=== PATIENT | female | born 1970 | race Caucasian/White ===

== ENCOUNTER 2020-07-15 20:22 | Inpatient (IN) | payer MEDICAID, SELFPAY ==
[~2020-07-15] VITALS: Ht 162.6 cm; Wt 76.7 kg
[~2020-07-15 20:22] MED LIST: PREN-234
--- NOTE | 2020-07-15 20:28 | NUR ---
PT BIBA ALS TAKEN TO BED 5
[2020-07-15 20:29] VITALS: BP 141/81
--- NOTE | 2020-07-15 20:30 | NUR ---
PATIENT PRESENTS TO ED WITH C/O SOB X TODAY .DENIES N/V/D; SKIN IS PINK/WARM/DRY; AAOX4. LUNGS CLEAR BL; HR EVEN AND REGULAR PATIENT STATES PAIN OF 0/10 AT THIS TIME; VSS; PATIENT POSITIONED FOR COMFORT; HOB ELEVATED; BEDRAILS UP X2; BED DOWN. ER MD MADE AWARE OF PT STATUS.
[2020-07-15] MEDS ORDERED: DEXAMETHASONE 10 MG/ML VIAL IVP ONE (20:45)
[2020-07-15] MEDS ORDERED: AZITHROMYCIN 500 MG in DEXTROSE 5% 250 ML IV ONE (20:45)
[2020-07-15] MEDS ORDERED: AZITHROMYCIN 500 MG INJ VIAL IV ONE (20:59)
[2020-07-15] MEDS ORDERED: cefTRIAXone 1,000 MG VIAL ONE (21:00)
--- NOTE | 2020-07-15 21:10 | NUR ---
20G SL ESTABLISHED LEFT A/C, LABS DRAWN
[2020-07-15 21:41] LABS: BASOPHILS % (AUTO) 0.1 % (0.0-2.0); EOSINOPHILS % (AUTO) 0.1 % (0.0-4.0); HEMATOCRIT 43.1 % (36-48); HEMOGLOBIN 14.4 g/dL (12.0-16.0); LYMPHOCYTES # (AUTO) 0.8 K/uL (2.5-16.5); LYMPHOCYTES % (AUTO) 9.1 % (20.5-51.1); MEAN CORPUSCULAR HEMOGLOBIN 30 pg (27-31); MEAN CORPUSCULAR HGB CONC 33 g/dL (33-37); MEAN CORPUSCULAR VOLUME 90.7 fL (80-94); MONOCYTES % (AUTO) 10.8 % (1.7-9.3); NEUTROPHILS # (AUTO) 7.3 K/uL (1.8-7.7); NEUTROPHILS % (AUTO) 79.9 % (42.2-75.2); PLATELET COUNT (AUTO) 283 K/uL (140-450); RED BLOOD CELL COUNT(AUTO) 4.75 MIL/uL (4.20-5.40); RED CELL DISTRIBUTION WIDTH 14.1 % (11.6-13.7); WHITE BLOOD COUNT (AUTO) 9.1 K/uL (4.8-10.8)
[2020-07-15 21:56] LABS: PROTHROMBIN TIME 9.6 secs (10.8-13.4)
[2020-07-15 22:00] LABS: ALBUMIN 2.7 g/dL (3.4-5.0); ANION GAP 16.2 (8-16); CARBON DIOXIDE 25.2 mmol/L (21-32); CREATININE 0.7 mg/dL (0.6-1.3); POTASSIUM 3.4 mmol/L (3.5-5.1); TOTAL BILIRUBIN 0.4 mg/dL (0.0-1.0)
[2020-07-15 22:15] LABS: LACTATE DEHYDROGENASE 405 U/L (81-234)
[2020-07-15 22:34] LABS: C-REACTIVE PROTEIN QUANT 24.7 mg/dL (0.0-0.9)
--- NOTE | 2020-07-15 22:45 | NUR ---
FAMILY CALLED. UPDATE GIVEN
--- NOTE | 2020-07-16 02:00 | NUR ---
resting in bed with eyes closed. respirations regular and unlabored.
--- NOTE | 2020-07-16 06:00 | NUR ---
CONTINUES TO REST COMFORTABLY WITH EYES CLOSED. AWAKENS EASILY THEN RETURNS QUICKLY TO RESTING WITH EYES CLOSED.
--- NOTE | 2020-07-16 08:00 | NUR ---
PT ALERT AND AWAKE, BREATHING EVEN AND UNLABORED. NO DISTRESS NOTED. WILL CONTINUE TO MONITOR.
--- NOTE | 2020-07-16 08:20 | NUR ---
PATIENT HAS BEEN SCREENED AND CATEGORIZED MODERATE NUTRITION RISK. PATIENT WILL BE SEEN WITHIN 3-5 DAYS OF ADMISSION. 07/18/20 07/20/[address]
--- NOTE | 2020-07-16 10:29 | NUR ---
SOCIAL WORK NOTE: SW WAS UNABLE TO MEET PATIENT AT BEDSIDE. SW CONTACTED KATE QUINTANA AND LEFT VM. SW CONTACTED RN FOR ADDITIONAL CONTACT INFORMATION BUT NONE WERE AVAILABLE. SW WILL FOLLOW UP.
[2020-07-16] MEDS ORDERED: guaiFENesin DM 200/20 MG-10 ML 10 ML UDC PO PRN (10:30)
[2020-07-16] MEDS ORDERED: HYDROcodone/APAP 7.5/325 MG 1 TAB PO PRN (10:30)
[2020-07-16] MEDS ORDERED: POTASSIUM CHLORIDE 10 MEQ TABER PO PRN (10:30)
[2020-07-16] MEDS ORDERED: ACETAMINOPHEN 325 MG TAB PO PRN (10:30)
[2020-07-16] MEDS ORDERED: ZOLPIDEM 5 MG TAB PO PRN (10:30)
[2020-07-16] MEDS ORDERED: DOCUSATE SODIUM 100 MG GELCAP PO PRN (10:30)
[2020-07-16] MEDS ORDERED: ONDANSETRON 4 MG/2 ML VIAL IM/IVP PRN (10:30)
[2020-07-16] MEDS ORDERED: ALBUTEROL HFA MDI 90 MCG/ACTUATION 8 GM INH PRN (10:35)
[2020-07-16] MEDS: NACL 0.9% 1,000 ML IV SCH (10:54)
[2020-07-16] MEDS ORDERED: remdesivir CLINICAL MONITORING 1 EA MISC MC PRN (11:05)
[2020-07-16 11:29] LABS: CHOL/HDL RATIO 9.8 (1-4.5); FREE T4 (FREE THYROXINE) 1.39 ng/dL (0.76-1.46); PHOSPHORUS 4.8 mg/dL (2.5-4.9); THYROID STIMULATING HORMONE 0.98 uIU/mL (0.34-3.74)
--- NOTE | 2020-07-16 12:00 | NUR ---
PT ALERT AND AWAKE, BREATHING EVEN AND UNLABORED. NO DISTRESS NOTED. WILL CONTINUE TO MONITOR.
[2020-07-16] MEDS ORDERED: REMDESIVIR (EUA) 200 MG in NACL 0.9% 100 ML IV SCH (12:30)
[2020-07-16 13:01] LABS: APPEARANCE,URINE HAZY (CLEAR); BILIRUBIN,URINE NEGATIVE (NEGATIVE); COLOR,URINE YELLOW (YELLOW); LEUKOCYTE ESTERASE ,URINE TRACE (NEGATIVE); NITRITE, URINE NEGATIVE (NEGATIVE); UGLUCOSE NEGATIVE (NEGATIVE)
[2020-07-16 13:12] LABS: BARBITURATE, URINE NEGATIVE ng/ml (NEG <=200); BENZODIAZEPINE, URINE NEGATIVE ng/mL (NEG <=200); CANNABINOID, URINE NEGATIVE ng/mL (NEG <=50); COCAINE, URINE NEGATIVE ng/mL (NEG <=300); OPIATE, URINE NEGATIVE ng/mL (NEG <=2000); PHENCYCLIDINE SCREEN,URINE NEGATIVE ng/mL (NEG <=25)
[2020-07-16 13:19] LABS: BLOOD, URINE TRACE (NEGATIVE); WBC,URINE 0-5 /HPF (0-5)
--- NOTE | 2020-07-16 13:40 | NUR ---
PT ALERT AND AWAKE, BREATHING EVEN AND UNLABORED. NO DISTRESS NOTED. WILL CONTINUE TO MONITOR.
--- NOTE | 2020-07-16 16:48 | NUR ---
Covid results received from lab. Results = Positive. Hard copy requested from lab and placed in infection controls mailbox.
--- NOTE | 2020-07-16 19:22 | NUR ---
REPORT GIVEN TO TIKA HOPE, TRANSFER OF CARE AT THIS TIME
[2020-07-16] MEDS ORDERED: cefTRIAXone 1,000 MG VIAL ONE (20:18)
--- NOTE | 2020-07-16 23:36 | NUR ---
UNABLE TO CO-SIGN MEDICATIONS REQUIRING CO-SIGNATURE D/T SYSTEM REJECTING AGENCY RNS CREDENTIALS. CN NOTIFIED EDITOR FARM [employer]RNAL AND SUP WORKING ON ISSUE.
[2020-07-17] MEDS: NACL 0.9% 1,000 ML IV SCH (03:32)
[2020-07-17 07:44] LABS: BASOPHILS % (AUTO) 0.1 % (0.0-2.0); EOSINOPHILS % (AUTO) 0.1 % (0.0-4.0); HEMATOCRIT 39.8 % (36-48); HEMOGLOBIN 13.1 g/dL (12.0-16.0); LYMPHOCYTES # (AUTO) 1.3 K/uL (2.5-16.5); LYMPHOCYTES % (AUTO) 13.6 % (20.5-51.1); MEAN CORPUSCULAR HEMOGLOBIN 30 pg (27-31); MEAN CORPUSCULAR HGB CONC 33 g/dL (33-37); MEAN CORPUSCULAR VOLUME 90.8 fL (80-94); MONOCYTES # (AUTO) 1.4 K/uL (0.8-1.0); MONOCYTES % (AUTO) 14.7 % (1.7-9.3); NEUTROPHILS # (AUTO) 6.8 K/uL (1.8-7.7); NEUTROPHILS % (AUTO) 71.5 % (42.2-75.2); PLATELET COUNT (AUTO) 365 K/uL (140-450); RED BLOOD CELL COUNT(AUTO) 4.38 MIL/uL (4.20-5.40); RED CELL DISTRIBUTION WIDTH 14.1 % (11.6-13.7); WHITE BLOOD COUNT (AUTO) 9.5 K/uL (4.8-10.8)
--- NOTE | 2020-07-17 07:55 | NUR ---
ASSUMED PATIENT 50 YEARS OLD FEMALE WITH COVID, NO ACUTE RESP DISTRESS VITal stable will continue to monitor.
[2020-07-17 08:07] LABS: T4 (THYROXINE) 9.1 ug/dL (4.5-12.0)
[2020-07-17 08:09] LABS: ALBUMIN 2.4 g/dL (3.4-5.0); ANION GAP 13.4 (8-16); CARBON DIOXIDE 25.5 mmol/L (21-32); CREATININE 0.7 mg/dL (0.6-1.3); POTASSIUM 3.9 mmol/L (3.5-5.1); TOTAL BILIRUBIN 0.3 mg/dL (0.0-1.0)
[2020-07-17] MEDS: PANTOPRAZOLE 40 MG TABEC PO SCH (09:00)
[2020-07-17] MEDS: ASCORBIC ACID 500 MG TAB PO SCH (09:00)
[2020-07-17] MEDS: COMMUNICATION ORDER MC SCH (09:00)
[2020-07-17] MEDS ORDERED: AZITHROMYCIN 250 MG TAB PO SCH (09:00)
--- NOTE | 2020-07-17 13:55 | NUR ---
patient reassess resting denies pain no sob cp, vital stable.
--- NOTE | 2020-07-17 16:12 | NUR ---
patient resting no cp, sob, denies nausea vomiting.
[2020-07-17] MEDS ORDERED: REMDESIVIR (EUA) 100 MG in NACL 0.9% 100 ML IV SCH (17:00)
--- NOTE | 2020-07-17 18:15 | NUR ---
assist patient with bedbath, sob with minimal exertion, improved at rest.
--- NOTE | 2020-07-17 19:15 | NUR ---
REPORT RECEIEVED FROM FLAVIO HOPE FOR CONTINUITY OF CARE
[2020-07-17] MEDS ORDERED: cefTRIAXone 1,000 MG VIAL ONE (19:21)
--- NOTE | 2020-07-17 21:00 | NUR ---
PT ON 2 L NASAL CANNULA. O2 SATURATION 96%. PT ALERT, AWAKE. RESPIRATIONS EVEN AND UNLABORED. CHEST RISE IS SYMMETRICAL. WILL CONTINUE TO MONITOR
--- NOTE | 2020-07-17 23:15 | NUR ---
PT ON 2 L NASAL CANNULA. O2 SATURATION 97%. PT ALERT, AWAKE. RESPIRATIONS EVEN AND UNLABORED. CHEST RISE IS SYMMETRICAL. WILL CONTINUE TO MONITOR
[2020-07-18] MEDS: NACL 0.9% 1,000 ML IV SCH ×2 (00:15→12:30)
--- NOTE | 2020-07-18 00:20 | NUR ---
Patient will be admitted to care of DR TELLEZ. Admited to TELEMETRY. Will go to room 115. Belongings list completed. Report to VIKTORIYA HOPE.
[2020-07-18 00:30] VITALS: BP 129/74
--- NOTE | 2020-07-18 00:30 | NUR ---
PT ARRIVED FROM ED TO UNIT VIA GURNEY. PT AAOX4, AMBULATORY, ABLE TO MAKE NEEDS KNOWN. RESPIRATIONS ARE EVEN AND UNLABORED TO O2 2LPM/NC. PT NOT IN DISTRESS. DROPLET PRECAUTION OBSERVED AT ALL TIMES. ABDOMEN IS SOFT AND NON-TENDER, ACTIVE BOWEL SOUNDS NOTED. SKIN IS WARM, DRY, AND INTACT. PT WITH IV ACCESS ON RIGHT FOREARM G20AND RIGHT WRIST G18 IN PLACE, PATENT AND INTACT. IVF INFUSING WELL. PT DENIES ANY PAIN OR DISCOMFORT AT THIS TIME. PT WELCOMED AND ORIENTED TO ROOM. VS TAKEN, STABLE. MRSA SWAB COLLECTED. NO REQUESTS MADE AT THIS TIME. SAFETY MEASURES IN PLACE. WILL CONTINUE TO MONITOR.
--- NOTE | 2020-07-18 02:04 | NUR ---
PT ASLEEP. O2 IN PLACE. PT NOT IN DISTRESS. VISIBLE CHEST RISE AND FALL NOTED. PT KEPT COMFORTABLE. CALL LIGHT WITHIN REACH. WILL CONTINUE TO MONITOR.
[2020-07-18 04:00] VITALS: BP 134/69
--- NOTE | 2020-07-18 04:23 | NUR ---
VS STABLE. O2 IN PLACE. PT NOT IN DISTRESS. PT DENIES ANY PAIN OR DISCOMFORT. NO REQUESTS MADE AT THIS TIME. CALL LIGHT WITHIN REACH. WILL CONTINUE TO MONITOR.
--- NOTE | 2020-07-18 07:37 | NUR ---
ENDORSED TO DAY SHIFT NURSE FOR CONTINUITY OF CARE.
--- NOTE | 2020-07-18 07:38 | NUR ---
RECEIVED REPORT FROM ICICLE MACHINE OPERATOR RN. PT AAOX4, AMBULATORY, ABLE TO MAKE NEEDS KNOWN. RESPIRATIONS ARE EVEN AND UNLABORED TO O2 2LPM/NC. PT NOT IN DISTRESS. DROPLET PRECAUTION OBSERVED AT ALL TIMES. ABDOMEN IS SOFT AND NON-TENDER, ACTIVE BOWEL SOUNDS NOTED. SKIN IS WARM, DRY, AND INTACT. PT WITH IV ACCESS ON RIGHT FOREARM G20AND RIGHT WRIST G18 IN PLACE, PATENT AND INTACT. IVF INFUSING WELL. PT DENIES ANY PAIN OR DISCOMFORT AT THIS TIME. SAFETY MEASURES IN PLACE. CALL LIGHT WITHIN REACH. WILL CONTINUE TO MONITOR.
[2020-07-18 08:00] VITALS: BP 113/71
[2020-07-18] MEDS: PANTOPRAZOLE 40 MG TABEC PO SCH (08:39)
[2020-07-18] MEDS: ASCORBIC ACID 500 MG TAB PO SCH (08:39)
[2020-07-18] MEDS: COMMUNICATION ORDER MC SCH (08:40)
[2020-07-18 09:02] LABS: HEMOGLOBIN 12.1 g/dL (12.0-16.0); LYMPHOCYTES # (AUTO) 1.3 K/uL (2.5-16.5); MEAN CORPUSCULAR HEMOGLOBIN 30 pg (27-31); MEAN CORPUSCULAR HGB CONC 33 g/dL (33-37); MEAN CORPUSCULAR VOLUME 91.2 fL (80-94); MONOCYTES # (AUTO) 0.9 K/uL (0.8-1.0); MONOCYTES % (AUTO) 10.4 % (1.7-9.3); NEUTROPHILS # (AUTO) 6.8 K/uL (1.8-7.7); NEUTROPHILS % (AUTO) 75.6 % (42.2-75.2); PLATELET COUNT (AUTO) 348 K/uL (140-450); RED BLOOD CELL COUNT(AUTO) 4.06 MIL/uL (4.20-5.40); RED CELL DISTRIBUTION WIDTH 13.9 % (11.6-13.7)
[2020-07-18 09:34] LABS: ALBUMIN 2.3 g/dL (3.4-5.0); ANION GAP 13.1 (8-16); CARBON DIOXIDE 23.6 mmol/L (21-32); CREATININE 0.6 mg/dL (0.6-1.3); POTASSIUM 3.7 mmol/L (3.5-5.1); TOTAL BILIRUBIN 0.2 mg/dL (0.0-1.0)
[2020-07-18] MEDS ORDERED: ASPI-1884 PO (10:50)
[2020-07-18] MEDS ORDERED: VITC500 PO (10:50)
[2020-07-18] MEDS ORDERED: DEXA6TAB1 PO (10:50)
[2020-07-18] MEDS ORDERED: AZIT250T3 PO (10:51)
[2020-07-18 12:00] VITALS: BP 131/65
--- NOTE | 2020-07-18 12:40 | NUR ---
PATIENT CURRENTLY ON ROOM AIR, O2 89-92%. INFORMED DR. JEFFERSON. DISCHARGE ORDER IN. DR. JEFFERSON AWARE OF PT'S O2 ON RA.
--- NOTE | 2020-07-18 14:35 | NUR ---
Gave report to HERMINIA Worthington at [facility]. Patient will be returning to [facility] room 42B under the care of Dr. Alves, with ames catheter and IV as per Elin's request. Patient unable to sign paperwork. Endorsed discharge medications to Elin, she verbalized understanding. Addendum: 07/18/20 at 1945 by Phoenix Shelton RN WRONG PATIENT.
--- NOTE | 2020-07-18 16:50 | NUR ---
DISCHARGE INSTRUCTIONS AND EDUCATION GIVEN. SanswireRACOM PHONE ATTEMPTED, NO ANSWER AFTER MULTIPLE RINGINGS. KRISTIN RN INTERPRETING TO PATIENT IN UKRAINIAN. DISCHARGE INSTRUCTION AND EDUCATION ABOUT COVID GIVEN. PATIENT VERBALIZED UNDERSTANDING ABOUT COVID QUARANTINE AFTER DISCHARGE HOME, TAKING ALL MEDICATIONS PRESCRIBED. IVS REMOVED, IV CATHETERS INTACT, MINIMAL BLEEDING NOTED. ID BANDS CUT. TELE MONITOR REMOVED. PATIENT WILL NOW CHANGE INTO HER OWN CLOTHING TO BE DISCHARGED HOME.
--- NOTE | 2020-07-18 17:20 | NUR ---
WHEELED PATIENT OFF OF FLOOR. PATIENT TOOK ALL HER BELONGINGS WITH HER. PATIENT O2 ON RA 90-91%.
== END 2020-07-18 17:26 | disposition home or self-care (01) | DRG 720 ==
LOC: MED 20:22 → MTU 22:53
PROVIDERS: ADMIT Family Medicine; ATTEND Family Medicine
PROC: XW033E5 Introduction of Remdesivir Anti-infective into Peripheral Vein, Percutaneous Approach, New Technology Group 5 (ICD-10-PCS; principal; 2020-07-17)
DX: A41.9 Sepsis, unspecified organism (principal); U07.1 COVID-19; E43 Unspecified severe protein-calorie malnutrition; G93.41 Metabolic encephalopathy; J96.01 Acute respiratory failure with hypoxia; E87.0 Hyperosmolality and hypernatremia; E87.6 Hypokalemia; R74.01 Elevation of levels of liver transaminase levels; I10 Essential (primary) hypertension; E11.9 Type 2 diabetes mellitus without complications; Z68.29 Body mass index [BMI] 29.0-29.9, adult; J12.82 Pneumonia due to coronavirus disease 2019
CPT/HCPCS: 36415; 71045; 80053; 80305; 81001; 82150; 82550; 82728; 83036; 83605; 83615; 83690; 83735; 83880; 84100; 84436; 84439; 84443; 84479; 84484; 85025; 85379; 85384; 85610; 85651; 85730; 86140; 86886; 86900; 86901; 87040; 87081; 87086; 87804; 93005; 96365; 96368; 96375; 99291; J0456; J0696; J1100; J1644; J7030; J7060; U0003

== ENCOUNTER 2020-08-15 13:25 | Emergency (ER) | payer MEDICAID, SELFPAY ==
[~2020-08-15] VITALS: Ht 157.5 cm; Wt 65.8 kg
[~2020-08-15 13:25] MED LIST changes: +ASPI-1884 PO; +AZIT250T3 PO; +DEXA6TAB1 PO; +VITC500 PO
[2020-08-15 13:47] VITALS: BP 149/90
[2020-08-15 14:56] LABS: BASOPHILS % (AUTO) 0.3 % (0.0-2.0); HEMATOCRIT 43.4 % (36-48); HEMOGLOBIN 14.4 g/dL (12.0-16.0); LYMPHOCYTES # (AUTO) 1.2 K/uL (2.5-16.5); LYMPHOCYTES % (AUTO) 7.7 % (20.5-51.1); MEAN CORPUSCULAR HEMOGLOBIN 30 pg (27-31); MEAN CORPUSCULAR HGB CONC 33 g/dL (33-37); MEAN CORPUSCULAR VOLUME 91.7 fL (80-94); MONOCYTES # (AUTO) 0.5 K/uL (0.8-1.0); MONOCYTES % (AUTO) 3.6 % (1.7-9.3); NEUTROPHILS # (AUTO) 13.3 K/uL (1.8-7.7); NEUTROPHILS % (AUTO) 88.4 % (42.2-75.2); PLATELET COUNT (AUTO) 546 K/uL (140-450); RED BLOOD CELL COUNT(AUTO) 4.73 MIL/uL (4.20-5.40); RED CELL DISTRIBUTION WIDTH 14.8 % (11.6-13.7); WHITE BLOOD COUNT (AUTO) 15.1 K/uL (4.8-10.8)
[2020-08-15 15:21] LABS: ANION GAP 14.9 (8-16); CARBON DIOXIDE 22.8 mmol/L (21-32); POTASSIUM 3.7 mmol/L (3.5-5.1); TOTAL BILIRUBIN 0.3 mg/dL (0.0-1.0)
--- NOTE | 2020-08-15 16:55 | NUR ---
Patient taken to CT scan via wheelchair by tech.
[2020-08-15 18:20] VITALS: BP 140/74
--- NOTE | 2020-08-15 18:20 | NUR ---
Patient discharged with v/s stable. Written and verbal after care instructions given and explained. Patient alert, oriented and verbalized understanding of instructions. Ambulatory with steady gait. All questions addressed prior to discharge. ID band removed. Patient advised to follow up with PMD. Rx of albuterol, naprosyn given. Patient educated on indication of medication including possible reaction and side effects. Opportunity to ask questions provided and answered.
== END 2020-08-15 18:20 | disposition home or self-care (01) ==
LOC: MED 13:25
DX: R06.02 Shortness of breath (principal); R00.0 Tachycardia, unspecified; R07.9 Chest pain, unspecified; Z20.828 Contact with and (suspected) exposure to other viral communicable diseases; I10 Essential (primary) hypertension; Z79.899 Other long term (current) drug therapy
CPT/HCPCS: 71275; 80053; 81002; 85025; 87426; 93005; 99285; Q9967; U0003

== ENCOUNTER 2020-11-05 11:37 | Inpatient (IN) | payer MEDICAID, SELFPAY ==
[~2020-11-05] VITALS: Ht 162.6 cm; Wt 59.9 kg
[2020-11-05 11:45] VITALS: BP 103/57
--- NOTE | 2020-11-05 11:50 | NUR ---
50 YO F BIB SELF FOR C/C OF 5/10 CP X4 HOURS RADIATING TO LEFT SHOULDER/ARM AND UPPER BACK. PT REPORT DIZZINESS WITH NAUSEA AND NO VOMITING. PT STATES DIZZINESS BEGAN LAST NIGHT AND HAD A SYNCOPAL EPISODE LAST NIGHT AND THIS MORNING THAT PROMPTED HER TO COME IN. PT DENIES HEAD OR BODY TRAUMA FROM SYNCOPAL EPISODES. PT REPORTS RECIEVED SECOND MODERNA VACCINE ON 11/03/20. REPORTS COVIS POSITIVE IN JUNE 2020. MED HX: HTN, DM2 RX: LISINOPRIL, METFORMIN
[2020-11-05] MEDS ORDERED: NITROGLYCERIN 0.4 MG TAB SL ONE (12:15)
[2020-11-05] MEDS ORDERED: NACL 0.9% 1,000 ML IV ONE (12:15)
--- NOTE | 2020-11-05 12:25 | NUR ---
EKG AT BEDSIDE
[2020-11-05 12:29] LABS: BASOPHILS # (AUTO) 0.1 K/uL (0.00-0.22); BASOPHILS % (AUTO) 2.4 % (0.0-2.0); EOSINOPHILS # (AUTO) 0.1 K/uL (0-0.4); EOSINOPHILS % (AUTO) 1.7 % (0.0-4.0); HEMATOCRIT 46.8 % (36-48); HEMOGLOBIN 15.8 g/dL (12.0-16.0); LYMPHOCYTES # (AUTO) 1.8 K/uL (2.5-16.5); LYMPHOCYTES % (AUTO) 30.2 % (20.5-51.1); MEAN CORPUSCULAR HEMOGLOBIN 31 pg (27-31); MEAN CORPUSCULAR HGB CONC 34 g/dL (33-37); MEAN CORPUSCULAR VOLUME 92.3 fL (80-94); MONOCYTES # (AUTO) 0.4 K/uL (0.8-1.0); MONOCYTES % (AUTO) 7.4 % (1.7-9.3); NEUTROPHILS # (AUTO) 3.5 K/uL (1.8-7.7); NEUTROPHILS % (AUTO) 58.3 % (42.2-75.2); PLATELET COUNT (AUTO) 218 K/uL (140-450); RED BLOOD CELL COUNT(AUTO) 5.07 MIL/uL (4.20-5.40); RED CELL DISTRIBUTION WIDTH 13.5 % (11.6-13.7)
--- NOTE | 2020-11-05 12:30 | NUR ---
PT TAKEN TO CT VIA WHEELCHAIR
--- NOTE | 2020-11-05 12:34 | NUR ---
ERMD STATES TO HOLD NITRO SL DUE TO BP OF 114/68
--- NOTE | 2020-11-05 12:39 | NUR ---
PT RETURNED FROM CT VIA WHEELCHAIR, PLACED ON INFORMIX DEVELOPER/PULSE OX.
[2020-11-05 12:43] LABS: ALBUMIN 3.7 g/dL (3.4-5.0); ANION GAP 10.5 (8-16); CARBON DIOXIDE 26.5 mmol/L (21-32); CREATININE 0.9 mg/dL (0.6-1.3); TOTAL BILIRUBIN 0.3 mg/dL (0.0-1.0)
--- NOTE | 2020-11-05 12:45 | NUR ---
PT REPORTS HIVE LIKE RASH THAT STARTED LAST NIGHT AND SUDSIDED BUT THEN IS RETURNING RIGHT NOW. ERMD MADE AWARE. ORDERS PLACED.
[2020-11-05] MEDS ORDERED: methylPREDNISolone SS 125 MG/2 ML VIAL IVP ONE (12:50)
[2020-11-05] MEDS ORDERED: diphenhydrAMINE 50 MG/ML VIAL IVP ONE (12:50)
--- NOTE | 2020-11-05 12:50 | NUR ---
CONSENT OBTAINED FOR CT CONTARST
--- NOTE | 2020-11-05 12:56 | NUR ---
PT TAKEN TO CT VIA WHEELCHAIR
--- NOTE | 2020-11-05 14:36 | NUR ---
JOHN SWAB COLLECTED AND GIVEN TO COMBINATION PRESSER
--- NOTE | 2020-11-05 15:29 | NUR ---
REPORT GIVEN TO HERMINIA FINNEY VIA PHONE.
--- NOTE | 2020-11-05 15:30 | NUR ---
Patient will be admitted to care of DR. TELLEZ. Admited to TELE. Will go to room 112A. Belongings list completed. Report to HERMINIA FINNEY.
[2020-11-05 15:40] VITALS: BP 114/63
--- NOTE | 2020-11-05 15:40 | NUR ---
RECEIVED PT VIA ARONRGIANNA FROM ER NURSE, PT IS AWAKE AND AMBULATED TO THE BED, AOX4, MALTESE SPEAKING, ON RA SATURATING AT 98%, IV LINE NOTED ON THE LEFT AC G. 20 WITH IVF NS INFUSING KVO, PT DENEIS PAIN AND NO SIGN OF DISTRESS NOTED. WILL CONTINUE TO MONITOR PT.
--- NOTE | 2020-11-05 16:45 | NUR ---
MRSA SWAB DONE TO PT NOW AND SAMPLE WAS SENT TO LAB.
[2020-11-05] MEDS ORDERED: HYDROcodone/APAP 7.5/325 MG 1 TAB PO PRN (17:25)
[2020-11-05] MEDS ORDERED: guaiFENesin DM 200/20 MG-10 ML 10 ML UDC PO PRN (17:25)
[2020-11-05] MEDS ORDERED: NITROGLYCERIN 0.4 MG TAB SL PRN (17:25)
[2020-11-05] MEDS ORDERED: ZOLPIDEM 5 MG TAB PO PRN (17:25)
[2020-11-05] MEDS ORDERED: POTASSIUM CHLORIDE 10 MEQ TABER PO PRN (17:25)
[2020-11-05] MEDS ORDERED: ONDANSETRON 4 MG/2 ML VIAL IM/IVP PRN (17:25)
[2020-11-05] MEDS ORDERED: DOCUSATE SODIUM 100 MG GELCAP PO PRN (17:25)
[2020-11-05 17:53] LABS: CHOL/HDL RATIO 3.7 (1-4.5); FREE T4 (FREE THYROXINE) 0.99 ng/dL (0.76-1.46); MAGNESIUM 2.2 mg/dL (1.8-2.4); PHOSPHORUS 4.6 mg/dL (2.5-4.9); THYROID STIMULATING HORMONE 3.84 uIU/mL (0.34-3.74)
[2020-11-05] MEDS: NACL 0.9% 1,000 ML IV SCH (18:12)
--- NOTE | 2020-11-05 18:12 | NUR ---
PT WAS STARTED ON IVF NS AT 60ML/HR INFUSING ON THE LEFT AC G. 20.
--- NOTE | 2020-11-05 19:24 | NUR ---
ENDORSED PT TO RETAIL ACCOUNT MANAGER NURSEOLIVER, FOR CONTINUITY OF CARE.
--- NOTE | 2020-11-05 19:25 | NUR ---
RECEIVED BEDSIDE REPORT FROM DAY RN. PT IS AAOX4. KINYARWANDA SPEAKING ABLE TO MAKE NEEDS KNOWN. PT IS AMBULATORY. SKIN IS C/D/I IV ON LAC 20G IVF PER ORDERS. PT DENIES ANY S/S OF DISTRESS. PT IS ON STANDARD ISOLATION. POC DISCUSSED WITH PT. PT VERBALIZED UNDERSTANDING. ALL SAFETY MEASURES ARE IN PLACE. WILL CONTINUE TO MONITOR.
[2020-11-05 20:00] VITALS: BP 122/78
[2020-11-05] MEDS: METOPROLOL 25 MG TAB PO SCH (20:16)
--- NOTE | 2020-11-05 20:16 | NUR ---
ADMIN LÁZARO LOPRESSOR FOR BP 122/78 104 BPM. ALL SAFETY MEASURES ARE IN PLACE. WILL CONTINUE TO MONITOR.
--- NOTE | 2020-11-05 22:09 | NUR ---
UA/UDS COLLECTED AND SENT TO LAB. ALL NEEDS MET. CALL LIGHT IS WITHIN REACH.
[2020-11-05 22:52] LABS: APPEARANCE,URINE CLEAR (CLEAR); BILIRUBIN,URINE NEGATIVE (NEGATIVE); BLOOD, URINE TRACE-I (NEGATIVE); COLOR,URINE YELLOW (YELLOW); LEUKOCYTE ESTERASE ,URINE NEGATIVE (NEGATIVE); NITRITE, URINE NEGATIVE (NEGATIVE); UGLUCOSE 1+ (NEGATIVE)
[2020-11-05 23:21] LABS: BARBITURATE, URINE NEGATIVE ng/ml (NEG <=200); BENZODIAZEPINE, URINE NEGATIVE ng/mL (NEG <=200); CANNABINOID, URINE NEGATIVE ng/mL (NEG <=50); COCAINE, URINE NEGATIVE ng/mL (NEG <=300); OPIATE, URINE NEGATIVE ng/mL (NEG <=2000); PHENCYCLIDINE SCREEN,URINE NEGATIVE ng/mL (NEG <=25)
[2020-11-05 23:29] LABS: WBC,URINE 0-5 /HPF (0-5)
[2020-11-06] VITALS: BP 111/67
--- NOTE | 2020-11-06 | NUR ---
VITAL SIGNS ARE WITHIN NORMAL LIMITS. ALL SAFETY MEASURES ARE IN PLACE. WILL CONTINUE TO MONITOR.
--- NOTE | 2020-11-06 02:10 | NUR ---
ROUNDS MADE. PT OBSERVED LAYING IN BED APPEARS TO BE ASLEEP. CHEST RISE AND FALL NOTED. CALL LIGHT IS WITHIN REACH.
[2020-11-06 04:00] VITALS: BP 116/60
--- NOTE | 2020-11-06 04:00 | NUR ---
VITAL SIGNS ARE WITHIN NORMAL LIMITS. ALL SAFETY MEASURES ARE IN PLACE.
[2020-11-06 07:04] LABS: BASOPHILS % (AUTO) 0.1 % (0.0-2.0); HEMATOCRIT 40.5 % (36-48); HEMOGLOBIN 13.6 g/dL (12.0-16.0); LYMPHOCYTES # (AUTO) 1.6 K/uL (2.5-16.5); LYMPHOCYTES % (AUTO) 15.5 % (20.5-51.1); MEAN CORPUSCULAR HEMOGLOBIN 31 pg (27-31); MEAN CORPUSCULAR HGB CONC 34 g/dL (33-37); MEAN CORPUSCULAR VOLUME 92.6 fL (80-94); MONOCYTES # (AUTO) 0.4 K/uL (0.8-1.0); MONOCYTES % (AUTO) 4.2 % (1.7-9.3); NEUTROPHILS # (AUTO) 8.3 K/uL (1.8-7.7); NEUTROPHILS % (AUTO) 80.2 % (42.2-75.2); PLATELET COUNT (AUTO) 238 K/uL (140-450); RED BLOOD CELL COUNT(AUTO) 4.38 MIL/uL (4.20-5.40); RED CELL DISTRIBUTION WIDTH 13.2 % (11.6-13.7); WHITE BLOOD COUNT (AUTO) 10.3 K/uL (4.8-10.8)
--- NOTE | 2020-11-06 07:18 | NUR ---
GAVE BEDSIDE REPORT TO DAY RN. PT ENDORSED IN STABLE CONDITION.
[2020-11-06 07:19] LABS: ANION GAP 13.3 (8-16); CARBON DIOXIDE 22.9 mmol/L (21-32); CREATININE 0.7 mg/dL (0.6-1.3); POTASSIUM 4.2 mmol/L (3.5-5.1)
--- NOTE | 2020-11-06 07:19 | NUR ---
REC'D REPORT FROM BLAST SETTER NURSE, PT A/Ox4, AWAKE. COMFORTABLE. RAFernando CombsAC 20G INFUSING NS@60ML/HR. CALL LIGHT WITHIN REACH. BED LOWEST POSITION. WILL CONTINUE TO MONITOR
[2020-11-06 08:00] VITALS: BP 139/82
[2020-11-06] MEDS ORDERED: CRUSHER, PILL MC ONE (08:56)
[2020-11-06] MEDS: PANTOPRAZOLE 40 MG TABEC PO SCH (08:59)
[2020-11-06] MEDS: ASPIRIN 81 MG TAB.CHEW PO SCH (08:59)
[2020-11-06] MEDS: METOPROLOL 25 MG TAB PO SCH ×2 (08:59→20:06)
[2020-11-06] MEDS: lisinopriL 5 MG TAB PO SCH (08:59)
--- NOTE | 2020-11-06 09:03 | NUR ---
ADMINISTERED MEDICATIONS PER MD ORDER. MOA AND SIDE EFFECTS DISCUSSED WITH PT WHO VERBALIZED UNDERSTANDING. PT TOLERATED PO MEDICATIONS WELL. CALL LIGHT WITHIN REACH. ALL SAFETY MEASURES IN PLACE.
--- NOTE | 2020-11-06 09:09 | NUR ---
PATIENT HAS BEEN SCREENED AND CATEGORIZED LOW NUTRITION RISK. PATIENT WILL BE SEEN WITHIN 7 DAYS OF ADMISSION. 11/12/[address]
[2020-11-06] MEDS: NACL 0.9% 1,000 ML IV SCH (10:05)
[2020-11-06] MEDS: ACETAMINOPHEN 325 MG TAB PO PRN (10:26)
--- NOTE | 2020-11-06 10:29 | NUR ---
PT RESTING, HAS NECK PAIN, ADMINISTERED ACETAMINOPHEN FOR PAIN. MOA AND SIDE EFFECTS DISCUSSED WITH PT WHO VERBALIZED UNDERSTANDING. PT TOLERATED MEDICATION WELL. WILL CONTINUE TO MONITOR
--- NOTE | 2020-11-06 10:42 | NUR ---
URINE SPECIMEN COLLECTED AND DROPPED OFF AT LAB FOR PROCESSING.
[2020-11-06 12:00] VITALS: BP 129/74
--- NOTE | 2020-11-06 12:45 | NUR ---
PT COMFORTABLE, NO SIGN OF DISTRESS, DENIES PAIN AT THIS TIME
--- NOTE | 2020-11-06 15:50 | NUR ---
ASSISTED PT TO RESTROOM. PT STABLE DENIES DIZZYNESS ORTHOSTATIC PRESSURE MEASURED 124/67 SUPINE, 122-71 SITTING, 131/77 STANDING IN A PERIOD OF THREE MINUTES
[2020-11-06 16:00] VITALS: BP 123/70
[2020-11-06] MEDS: ATORVASTATIN 20 MG TAB PO SCH (17:24)
--- NOTE | 2020-11-06 17:25 | NUR ---
ADMINISTERED MEDICATION PER MD ORDER, MOA AND SIDE EFFECT DISCUSSED WITH PT IN [place] WHO VERBALIZED UNDERSTANDING.
--- NOTE | 2020-11-06 18:18 | NUR ---
PT STABLE NO SIGN OF DISTRESS
--- NOTE | 2020-11-06 19:15 | NUR ---
ENDORSED PT TO RN INTERN NURSE, PT STABLE . RA, CALL LIGHT WITHIN REACH. NO SIGN OF DISTRESS
--- NOTE | 2020-11-06 19:16 | NUR ---
RECEIVED REPORT FROM PHOEBE FOSTER. PATIENT AOX4 ON ROOM AIR. NO S/S RESPIRATORY DISTRESS. NO C/O PAIN AT THIS TIME. IV SITE LAC20G PATENT INTACT, INFUSING NS @60ML/HR. SAFETY MEASURES IN PLACE. CALL LIGHT WITHIN REACH. WILL CONTINUE TO MONITOR
[2020-11-06 20:00] VITALS: BP 122/68
--- NOTE | 2020-11-06 20:08 | NUR ---
ADMINISTERED SCHEDULED MEDICATION, EDUCATION PROVIDED. NO DISTRESS NOTED. DENIES DISCOMFORT. DENIES PAIN. SAFETY MEASURES IN PLACE. CALL LIGHT WITHIN REACH. WILL CONTINUE TO MONITOR
--- NOTE | 2020-11-06 22:45 | NUR ---
PATIENT ASLEEP IN BED. RESPIRATIONS EVEN UNLABORED. NO DISTRESS NOTED. BED IN LOW POSITION. CALL LIGHT WITHIN REACH. WILL CONTINUE TO MONITOR
[2020-11-07] VITALS: BP 119/78
[2020-11-07 04:00] VITALS: BP 134/79
[2020-11-07] MEDS: NACL 0.9% 1,000 ML IV SCH ×2 (04:43→19:25)
--- NOTE | 2020-11-07 04:43 | NUR ---
PATIENT AWAKE RESTING IN BED. NO S/S ACUTE DISTRESS NOTED. DENIES PAIN. DENIES DISCOMFORT. BED IN LOW POSITION. CALL LIGHT WITHIN REACH. WILL CONTINUE TO MONITOR
[2020-11-07 06:14] LABS: BASOPHILS % (AUTO) 0.2 % (0.0-2.0); EOSINOPHILS # (AUTO) 0.2 K/uL (0-0.4); EOSINOPHILS % (AUTO) 3.2 % (0.0-4.0); HEMATOCRIT 36.2 % (36-48); HEMOGLOBIN 12.5 g/dL (12.0-16.0); LYMPHOCYTES # (AUTO) 3.3 K/uL (2.5-16.5); LYMPHOCYTES % (AUTO) 44.3 % (20.5-51.1); MEAN CORPUSCULAR HEMOGLOBIN 32 pg (27-31); MEAN CORPUSCULAR HGB CONC 35 g/dL (33-37); MEAN CORPUSCULAR VOLUME 91.6 fL (80-94); MONOCYTES # (AUTO) 0.6 K/uL (0.8-1.0); MONOCYTES % (AUTO) 8.5 % (1.7-9.3); NEUTROPHILS # (AUTO) 3.3 K/uL (1.8-7.7); NEUTROPHILS % (AUTO) 43.8 % (42.2-75.2); PLATELET COUNT (AUTO) 220 K/uL (140-450); RED BLOOD CELL COUNT(AUTO) 3.96 MIL/uL (4.20-5.40); RED CELL DISTRIBUTION WIDTH 13.5 % (11.6-13.7); WHITE BLOOD COUNT (AUTO) 7.5 K/uL (4.8-10.8)
[2020-11-07 06:58] LABS: ANION GAP 11.7 (8-16); CARBON DIOXIDE 24.9 mmol/L (21-32); CREATININE 0.6 mg/dL (0.6-1.3); POTASSIUM 3.6 mmol/L (3.5-5.1)
--- NOTE | 2020-11-07 07:10 | NUR ---
RECEIVED REPORT FROM NIGHT NURSE FOR CONTINUITY OF CARE. PT IS STABLE. PT RESTING IN BED, NO SIGNS OF DISTRESS NOTED, PT ON ROOM AIR, RESPIRATIONS EVEN AND UNLABORED. PT HAS LAC 20G INFUSING NS AT 60ML/H. SKIN INTACT. SAFETY MEASURES IN PLACE, WILL CONTINUE TO MONITOR.
--- NOTE | 2020-11-07 07:15 | NUR ---
ENDORSED PATIENT TO DAY RN FOR CONTINUITY OF CARE. PATIENT IS IN STABLE CONDITION
[2020-11-07 08:00] VITALS: BP 142/76
[2020-11-07] MEDS: ASPIRIN 81 MG TAB.CHEW PO SCH (09:06)
[2020-11-07] MEDS: METOPROLOL 25 MG TAB PO SCH ×2 (09:08→21:30)
[2020-11-07] MEDS: lisinopriL 5 MG TAB PO SCH (09:08)
[2020-11-07] MEDS: PANTOPRAZOLE 40 MG TABEC PO SCH (09:09)
--- NOTE | 2020-11-07 09:10 | NUR ---
ADMINISTERED PRESCRIBED SCHEDULED MEDS, MEDICATION EDUCATION PROVIDED. PT VERBALIZED UNDERSTANDING. PT TOLERATED WELL. CALL LIGHT WITHIN REACH, WILL CONTINUE TO MONITOR
--- NOTE | 2020-11-07 10:35 | NUR ---
NOTIFIED DR JEFFERSON, DR KING WROTE IN HIS PROGRESS NOTES TO D/C LISINOPRIL. RECEIVED TORB TO D/C LISINOPRIL. WILL INPUT ORDER AND CARRY IT OUT.
--- NOTE | 2020-11-07 11:05 | NUR ---
ROUNDING ON PT, PT IS RESTING IN BED, ALL NEEDS MET. PT IS STABLE, WILL CONTINUE TO MONITOR
[2020-11-07 12:00] VITALS: BP 139/81
--- NOTE | 2020-11-07 13:50 | NUR ---
IV INFILTRATED. REMOVED IV, INTACT. STARTED NEW IV RIGHT HAND 22G. PT TOLERATED WELL, WILL CONTINUE TO MONITOR.
--- NOTE | 2020-11-07 15:33 | NUR ---
ROUNDING ON PT, PT RESTING IN BED, NO SIGNS OF DISTRESS, ALL NEEDS MET. CALL LIGHT WITHIN REACH, WILL CONTINUE TO MONITOR.
[2020-11-07 16:00] VITALS: BP 151/86
[2020-11-07] MEDS: ACETAMINOPHEN 325 MG TAB PO PRN (16:19)
[2020-11-07] MEDS: ATORVASTATIN 20 MG TAB PO SCH (16:20)
--- NOTE | 2020-11-07 16:22 | NUR ---
ADMINISTERED SCHEDULED MEDICATION AND TYLENOL FOR HEADACHE. MEDICATION EDUCATION PROVIDED. PT TOLERATED WELL. WILL CONTINUE TO MONITOR.
--- NOTE | 2020-11-07 19:20 | NUR ---
ENDORSE PT TO NIGHT NURSE FOR CONTINUITY OF CARE
--- NOTE | 2020-11-07 19:21 | NUR ---
RECEIVED PATIENT FROM MORNING SHIFT RN AWAKE, ALERT, VERBALLY RESPONSIVE. NO DISTRESS, RESPIRATION REGULAR NON LABORED. DENIES PAIN AT THIS TIME. WILL CONTINUE TO MONITOR.
[2020-11-07 20:00] VITALS: BP 130/76
[2020-11-08] VITALS: BP 122/68
[2020-11-08 04:00] VITALS: BP 129/78
[2020-11-08 06:24] LABS: BASOPHILS % (AUTO) 0.3 % (0.0-2.0); EOSINOPHILS # (AUTO) 0.4 K/uL (0-0.4); EOSINOPHILS % (AUTO) 5.2 % (0.0-4.0); HEMATOCRIT 39.4 % (36-48); HEMOGLOBIN 13.3 g/dL (12.0-16.0); LYMPHOCYTES % (AUTO) 42.8 % (20.5-51.1); MEAN CORPUSCULAR HEMOGLOBIN 31 pg (27-31); MEAN CORPUSCULAR HGB CONC 34 g/dL (33-37); MEAN CORPUSCULAR VOLUME 92.1 fL (80-94); MONOCYTES # (AUTO) 0.6 K/uL (0.8-1.0); MONOCYTES % (AUTO) 8.8 % (1.7-9.3); NEUTROPHILS % (AUTO) 42.9 % (42.2-75.2); PLATELET COUNT (AUTO) 266 K/uL (140-450); RED BLOOD CELL COUNT(AUTO) 4.28 MIL/uL (4.20-5.40); RED CELL DISTRIBUTION WIDTH 13.1 % (11.6-13.7)
[2020-11-08 06:43] LABS: ANION GAP 11.9 (8-16); CARBON DIOXIDE 24.5 mmol/L (21-32); CREATININE 0.7 mg/dL (0.6-1.3); POTASSIUM 3.4 mmol/L (3.5-5.1)
--- NOTE | 2020-11-08 07:15 | NUR ---
RECEIVED REPORT FROM NIGHT NURSE FOR CONTINUITY OF CARE. PT IS RESTING IN BED, NO SIGNS OF DISTRESS NOTED. PT ON ROOM AIR. PT HAS RH 22G INFUSING NS AT 60ML/H. SKIN INTACT. CALL LIGHT WITHIN REACH. SAFETY MEASURES IN PLACE, WILL CONTINUE TO MONITOR.
--- NOTE | 2020-11-08 07:15 | NUR ---
ENDORSED TO THE MORNING SHIFT RN FOR CONTINUITY OF CARE IN STABLE CONDITION.
[2020-11-08 08:00] VITALS: BP 134/84
[2020-11-08] MEDS: ASPIRIN 81 MG TAB.CHEW PO SCH (08:57)
[2020-11-08] MEDS: METOPROLOL 25 MG TAB PO SCH (08:59)
[2020-11-08] MEDS: PANTOPRAZOLE 40 MG TABEC PO SCH (08:59)
--- NOTE | 2020-11-08 09:01 | NUR ---
ADMINISTERED SCHEDULED MEDICATION, MEDICATION EDUCATION PROVIDED. PT VERBALIZED UNDERSTANDING. PT TOLERATED WELL. PT IS STABLE, CALL LIGHT WITHIN REACH, WILL CONTINUE TO MONITOR.
--- NOTE | 2020-11-08 11:05 | NUR ---
ROUNDING ON PT, PT IS STABLE, NO SIGNS OF DISTRESS NOTED. ALL NEEDS MET. CRULLER MAKER IN PLACE, WILL CONTINUE TO MONITOR.
[2020-11-08 12:00] VITALS: BP 127/74
[2020-11-08] MEDS ORDERED: ATOR20TA40 PO (12:38)
[2020-11-08] MEDS ORDERED: METO25TA PO (12:38)
[2020-11-08] MEDS ORDERED: PANT40EC56 PO (12:38)
[2020-11-08] MEDS ORDERED: DEXT5SYR3 PO (12:38)
--- NOTE | 2020-11-08 14:03 | NUR ---
GAVE PT DISCHARGE INSTRUCTIONS. PT VERBALIZED UNDERSTANDING. REMOVED IV AND INTACT. PT TOLERATED WELL. PT AMBULATED TO CAR WITH STEADY GAIT. FLU AND PNA REFUSED. PT STABLE. PT DISCHARGED HOME.
--- NOTE | 2020-11-08 14:03 | NUR ---
RECEIVED A VERBAL ORDER FROM DR JEFFERSON TO PLACE ORDERS FOR SS TO HELP THE PT FIND A SWINGING CUT OFF SAW OPERATOR TO FOLLOW UP OUTPATIENT. PT IN ORDER AND NOTIFIED PT WILL RECEIVE A CALL FROM SW AFTER DISCHARGE. PT VERBALIZED UNDERSTANDING.
== END 2020-11-08 14:05 | disposition home or self-care (01) | DRG 203 ==
LOC: MED 11:37 → MTU 15:10
PROVIDERS: ADMIT Family Medicine; ATTEND Family Medicine
DX: M94.0 Chondrocostal junction syndrome [Tietze] (principal); D68.9 Coagulation defect, unspecified; I10 Essential (primary) hypertension; E02 Subclinical iodine-deficiency hypothyroidism; E11.9 Type 2 diabetes mellitus without complications; R55 Syncope and collapse; F41.9 Anxiety disorder, unspecified; K57.30 Diverticulosis of large intestine without perforation or abscess without bleeding; I08.1 Rheumatic disorders of both mitral and tricuspid valves; Z86.16 Personal history of COVID-19; Z20.822 Contact with and (suspected) exposure to COVID-19; Z83.3 Family history of diabetes mellitus; Z82.3 Family history of stroke; Z82.49 Family history of ischemic heart disease and other diseases of the circulatory system
CPT/HCPCS: 36415; 70450; 71045; 71275; 80048; 80053; 80305; 81001; 82150; 83036; 83690; 83735; 83880; 84100; 84436; 84439; 84443; 84479; 84484; 85025; 85610; 85730; 87081; 93005; 93880; 99285; J1200; J2930; J7030; Q9967

== ENCOUNTER 2021-10-27 07:19 | Emergency (ER) | payer SELFPAY ==
[~2021-10-27] VITALS: Ht 151.9 cm; Wt 65.4 kg
[~2021-10-27 07:19] MED LIST changes: +ASPI-1749 PO; -ASPI-1884 PO; +ATOR20TA40 PO; -AZIT250T3 PO; -DEXA6TAB1 PO; +DEXT5SYR3 PO; +METO25TA PO; +PANT40EC56 PO; -PREN-234
[2021-10-27 07:28] VITALS: BP 165/109
--- NOTE | 2021-10-27 07:33 | NUR ---
Ashley martinez in [facility] - 10/27/21 at 0734 by [email or web address] PT AMB TO BED 8.
--- NOTE | 2021-10-27 07:37 | NUR ---
PT AMB TO BED 2.
[2021-10-27] MEDS ORDERED: BISMUTH SUBSALICYLATE 15 ML UDBTL PO STA (07:52)
[2021-10-27] MEDS ORDERED: PANTOPRAZOLE 40 MG TABEC PO ONE (07:55)
[2021-10-27] MEDS ORDERED: DICYCLOMINE HCL LIQUID 10 MG/5 ML UDC PO ONE (07:55)
--- NOTE | 2021-10-27 08:05 | NUR ---
LAB AT BEDSIDE
--- NOTE | 2021-10-27 08:05 | NUR ---
KEYBOARD OPERATOR AT BEDSIDE
[2021-10-27 08:23] LABS: BASOPHILS % (AUTO) 0.3 % (0.0-2.0); EOSINOPHILS # (AUTO) 0.1 K/uL (0-0.4); EOSINOPHILS % (AUTO) 0.7 % (0.0-4.0); HEMATOCRIT 36.5 % (36-48); HEMOGLOBIN 12.2 g/dL (12.0-16.0); LYMPHOCYTES # (AUTO) 2.5 K/uL (2.5-16.5); LYMPHOCYTES % (AUTO) 28.5 % (20.5-51.1); MEAN CORPUSCULAR HEMOGLOBIN 31 pg (27-31); MEAN CORPUSCULAR HGB CONC 33 g/dL (33-37); MEAN CORPUSCULAR VOLUME 91.8 fL (80-94); MONOCYTES # (AUTO) 0.7 K/uL (0.8-1.0); MONOCYTES % (AUTO) 8.2 % (1.7-9.3); NEUTROPHILS # (AUTO) 5.5 K/uL (1.8-7.7); NEUTROPHILS % (AUTO) 62.3 % (42.2-75.2); PLATELET COUNT (AUTO) 231 K/uL (140-450); RED BLOOD CELL COUNT(AUTO) 3.97 MIL/uL (4.20-5.40); RED CELL DISTRIBUTION WIDTH 13.6 % (11.6-13.7); WHITE BLOOD COUNT (AUTO) 8.8 K/uL (4.8-10.8)
--- NOTE | 2021-10-27 08:26 | NUR ---
48/F PRESENTS TO ED WITH C/O 8/10 "BURNING LIKE" EPIGASTRIC PAIN X3 DAYS. PATIENT REPORTS PAIN HAS BEGAN TO RADIATE TO HER BACK AND REPORTS NAUSEA. PATIENT DENIES TAKING MEDICATION FOR HER SYMPTOMS, STATES PAIN WORSENS AFTER EATING. PATIENT DENIES CP, SOB, FEVER, V/D.
[2021-10-27 08:27] LABS: APPEARANCE,URINE CLEAR (CLEAR); BILIRUBIN,URINE NEGATIVE (NEGATIVE); BLOOD, URINE NEGATIVE (NEGATIVE); COLOR,URINE YELLOW (YELLOW); LEUKOCYTE ESTERASE ,URINE TRACE (NEGATIVE); NITRITE, URINE NEGATIVE (NEGATIVE); UGLUCOSE NEGATIVE (NEGATIVE)
[2021-10-27 08:50] LABS: ALBUMIN 3.5 g/dL (3.4-5.0); ANION GAP 14.6 (8-16); ASPARTATE AMINOTRANSFERASE 32 U/L (15-37); CARBON DIOXIDE 23.9 mmol/L (21-32); CHLORIDE 109 mmol/L (98-107); CREATININE 0.7 mg/dL (0.6-1.3); GFR ARICAN-AMERICAN 113 mL/min (>90); GLUCOSE 108 mg/dL (74-106); LIPASE 94 U/L (73-393); POTASSIUM 3.5 mmol/L (3.5-5.1); SODIUM SERUM 144 mmol/L (136-145); TOTAL BILIRUBIN 0.4 mg/dL (0.0-1.0); UREA NITROGEN, BLOOD 9 mg/dL (7-18)
[2021-10-27 08:55] LABS: RBC,URINE 0-5 /HPF (0-5); WBC,URINE 0-5 /HPF (0-5)
[2021-10-27 08:57] LABS: CALCIUM OXALATE CRYSTALS,UR None Seen /HPF (None Seen); OTHER CRYSTALS,URINE None Seen /HPF (None Seen); TRICHOMONAS,URINE None Seen /HPF (None Seen); TRIPLE PHOSPHATE CRYSTAL,UR None Seen /HPF (None Seen); URIC ACID CRYSTALS,URINE None Seen /HPF (None Seen); URINE AMORPHOUS URATE None Seen /HPF (None Seen); YEAST,URINE None Seen /HPF (None Seen)
[2021-10-27 08:58] LABS: COARSE GRANULAR CASTS,URINE None Seen /LPF (None Seen); FINE GRANULAR CASTS,URINE None Seen /LPF (None Seen); HYALINE CASTS, URINE None Seen /LPF (None Seen); OTHER CASTS, URINE None Seen /LPF (None Seen); RED BLOOD CELL CASTS,URINE None Seen /LPF (None Seen); WAXY CASTS,URINE None Seen /LPF (None Seen)
[2021-10-27] MEDS ORDERED: ONDANSETRON 4 MG ODT PO ONE (10:10)
[2021-10-27] MEDS ORDERED: MECLIZINE 25 MG TAB PO ONE (10:10)
--- NOTE | 2021-10-27 10:22 | NUR ---
WHEN PULLING MECLIZINE ONE PILL FELL ON GROUND AND WASTED IN OMNICELL, PULLED A SECOND TO MEDICATE ORDERED. PHARMACY MADE AWARE.
--- NOTE | 2021-10-27 11:00 | NUR ---
PATIENT RESTING IN BED WITH EYES CLOSED, PROVIDED BLANKET FOR COMFORT, ALL NEEDS MET AT THIS TIME.
[2021-10-27] MEDS ORDERED: FAMO-90 PO (11:36)
[2021-10-27] MEDS ORDERED: MECL-303 PO (11:36)
[2021-10-27] MEDS ORDERED: ONDA-188 PO (11:36)
[2021-10-27 11:49] VITALS: BP 152/75
--- NOTE | 2021-10-27 11:49 | NUR ---
Patient discharged with v/s stable. Written and verbal after care instructions ABOUT VERTIGO AND GERD given and explained. Patient alert, oriented and verbalized understanding of instructions. Ambulatory with steady gait. All questions addressed prior to discharge. ID band removed. Patient advised to follow up with PMD. Rx of PEPCID, ZOFRAN AND ANTIVERT given. Patient educated on indication of medication including possible reaction and side effects. Opportunity to ask questions provided and answered.
== END 2021-10-27 11:29 | disposition home or self-care (01) ==
LOC: MED 07:19
DX: K21.9 Gastro-esophageal reflux disease without esophagitis (principal); I10 Essential (primary) hypertension; R55 Syncope and collapse; E11.9 Type 2 diabetes mellitus without complications; E06.9 Thyroiditis, unspecified; Z79.899 Other long term (current) drug therapy
CPT/HCPCS: 36415; 71045; 80053; 81001; 83690; 84484; 85025; 93005; 99285; J8597; Q0162